=== PATIENT | female | born 1970 | race African-American/Black ===

== ENCOUNTER 2017-03-12 21:41 | Emergency (ER) | payer OTHER | END 2017-03-12 22:15 | disposition home or self-care (01) | LOC: NAV ERS 21:41 | DX: R21 Rash and other nonspecific skin eruption (principal); E66.9 Obesity, unspecified; Z79.01 Long term (current) use of anticoagulants | CPT/HCPCS: 99282 ==

== ENCOUNTER 2023-07-19 12:04 | Outpatient (CLI) | payer BC | END 2023-07-19 12:05 | disposition home or self-care (01) | LOC: NAV RAD 12:04 | PROVIDERS: ATTEND Physician Assistant | DX: M51.16 Intervertebral disc disorders with radiculopathy, lumbar region (principal); M79.606 Pain in leg, unspecified; M47.816 Spondylosis without myelopathy or radiculopathy, lumbar region | CPT/HCPCS: 72100 ==

== ENCOUNTER 2024-04-24 15:14 | Emergency (ER) | payer BC, SELFPAY ==
[2024-04-24] MEDS ORDERED: predniSONE 20 MG TAB ONE (15:38)
== END 2024-04-24 16:10 | disposition home or self-care (01) ==
LOC: NAV ERS 15:14
DX: L23.7 Allergic contact dermatitis due to plants, except food (principal); I50.9 Heart failure, unspecified
CPT/HCPCS: 99283; J7512